=== PATIENT | male | born 1970 | race Hispanic/Latino ===

== ENCOUNTER 2023-09-02 15:16 | Emergency (ER) | payer OTHER ==
[~2023-09-02] VITALS: Ht 165.1 cm; Wt 87.1 kg
[2023-09-02 15:39] VITALS: PULSE 99; RESP 15; TEMP 98.5
[2023-09-02 16:01] LABS: CLARITY,URINE CLEAR (CLEAR); COLOR,URINE YELLOW (YELLOW); LEUKOCYTE ESTERASE ,URINE NEGATIVE (NEGATIVE); NITRITE,URINE NEGATIVE (NEGATIVE); PH,URINE 5.5 (5 - 7); PROTEIN,URINE DIPSTICK NEGATIVE (NEGATIVE)
[2023-09-02 16:02] LABS: BILIRUBIN,URINE NEGATIVE (NEGATIVE); GLUCOSE, URINE NEGATIVE (NEGATIVE); KETONES,URINE NEGATIVE (NEGATIVE); URINE UROBILINOGEN 0.2 mg/dL (0.2 - 1)
[2023-09-02] MEDS ORDERED: LIDO-PRILO CAI1 EACH TOP (16:05)
[2023-09-02] MEDS ORDERED: CEFDINIR300 MG PO (16:05)
[2023-09-02 16:10] LABS: BACTERIA,URINE RARE /HPF; RBC,URINE 0-5 /HPF (0-5)
[2023-09-02 16:21] VITALS: BP 125/88; PULSE 78; RESP 16; TEMP 98.4; O2SAT 98
== END 2023-09-02 16:39 | disposition home or self-care (01) ==
LOC: ER 15:54
DX: R33.9 Retention of urine, unspecified (principal)
CPT/HCPCS: 51700; 81001; 87086; 99283